=== PATIENT | male | born 1975 | race Caucasian/White ===

== ENCOUNTER 2017-06-11 12:21 | Emergency (ER) | payer SELFPAY ==
[~2017-06-11] VITALS: Ht 182.9 cm; Wt 83.0 kg
[2017-06-11 12:25] VITALS: BP 124/89; PULSE 105; RESP 16; TEMP 98; O2SAT 100
[2017-06-11 13:22] LABS: AUTOMATED NEUTROPHIL # 3.4 TH/MM3 (1.8-7.7); BASOPHIL % 0.6 % (0.0-2.0); EOSINOPHIL % 0.4 % (0.0-4.0); HEMATOCRIT 44.7 % (39.0-51.0); HEMO FLAGS DIFF FINAL; LYMPH % 27.8 % (9.0-44.0); LYMPHOCYTE # 1.6 TH/MM3 (1.0-4.8); MEAN CELL VOLUME 88.4 FL (80.0-100.0); MEAN CORPUSCULAR HEMOGLOBIN 30.9 PG (27.0-34.0); MONO % 12.6 % (0.0-8.0); NEUT % 58.6 % (16.0-70.0); PLATELET COUNT 126 TH/MM3 (150-450); RED BLOOD COUNT 5.06 MIL/MM3 (4.50-5.90); WHITE BLOOD COUNT 5.9 TH/MM3 (4.0-11.0)
[2017-06-11 13:35] LABS: BICARBONATE 25.3 MEQ/L (21.0-32.0); POTASSIUM 4.2 MEQ/L (3.5-5.1)
--- NOTE | 2017-06-11 14:07 | PD ---
HPI Chief Complaint: Skin Problem Time Seen by Provider: 14:01 Travel History International Travel<30 days: No Contact w/Intl Traveler<30days: No Traveled to known affect area: No History of Present Illness HPI 42-year-old male came to the emergency room with history of fever and rash for past 2-3 days. Patient says the fever is high up to 103 and he is been taking Tylenol and Motrin. He is mainly here for the rash since its generalized and he is not sure what it is. Patient was slightly tachycardic. He does not appear to be in any distress. He is not sure if he had chickenpox when he was a child. No history of cough or breathing difficulty. No known sick contacts. Patient was afebrile in triage. The rash is slightly itchy but otherwise he says it does not bother him too much. Patient is otherwise a healthy person. [facility] Past Medical History Narrative Medical List of his past medical, surgical, social and family history is reviewed from the nursing note. Social History Tobacco Use: Yes (chews tobacco) Allergies-Medications (Allergen,Severity, Reaction): Coded Allergies: No Known Allergies (Unverified , 06/11/17) Comments No known drug allergies. Reported Meds & Prescriptions Reported Meds & Active Scripts Active No Active Prescriptions or Reported Medications Narrative Medication List of his home medications reviewed from the nursing note. Review of Systems Except as stated in HPI: all other systems reviewed are Neg General / Constitutional: Positive: Fever Skin: Positive Rash Physical Exam Narrative GENERAL: Awake, alert, no obvious distress SKIN: Focused skin assessment warm/dry. Generalized brought of papular vesicular rash had various stages. "Dewdrop on chiki petal" appearance of some of the vesicles and some have scabs. HEAD: Atraumatic. Normocephalic. EYES: Pupils equal and round. No scleral icterus. No injection or drainage. ENT: No nasal bleeding or discharge. Mucous membranes pink and moist. Intraoral vesicles especially on the labial surface NECK: Trachea midline. No JVD. CARDIOVASCULAR: Regular rate and rhythm. No murmur appreciated. RESPIRATORY: No accessory muscle use. Clear to auscultation. Breath sounds equal bilaterally. GASTROINTESTINAL: Abdomen soft, non-tender, nondistended. Hepatic and splenic margins not palpable. MUSCULOSKELETAL: No obvious deformities. No clubbing. No cyanosis. No edema. NEUROLOGICAL: Awake and alert. No obvious cranial nerve deficits. Motor grossly within normal limits. Normal speech. PSYCHIATRIC: Appropriate mood and affect; insight and judgment normal. Data Data Last Documented VS Orders Orders Complete Blood Count With Diff (06/11/17 12:29) Basic Metabolic Panel (Bmp) (06/11/17 12:29) Rapid Plasmin Reagin Screen (06/11/17 12:29) Ed Discharge Order (06/11/17 14:36) Labs Laboratory Tests Test 06/11/17 12:51 White Blood Count 5.9 TH/MM3 Red Blood Count 5.06 MIL/MM3 Hemoglobin 15.6 GM/DL Hematocrit 44.7 % Mean Corpuscular Volume 88.4 FL Mean Corpuscular Hemoglobin 30.9 PG Mean Corpuscular Hemoglobin Concent 35.0 % Red Cell Distribution Width 13.0 % Platelet Count 126 TH/MM3 Mean Platelet Volume 9.7 FL Neutrophils (%) (Auto) 58.6 % Lymphocytes (%) (Auto) 27.8 % Monocytes (%) (Auto) 12.6 % Eosinophils (%) (Auto) 0.4 % Basophils (%) (Auto) 0.6 % Neutrophils # (Auto) 3.4 TH/MM3 Lymphocytes # (Auto) 1.6 TH/MM3 Monocytes # (Auto) 0.7 TH/MM3 Eosinophils # (Auto) 0.0 TH/MM3 Basophils # (Auto) 0.0 TH/MM3 CBC Comment DIFF FINAL Differential Comment Blood Urea Nitrogen 20 MG/DL Creatinine 1.41 MG/DL Random Glucose 100 MG/DL Calcium Level 8.8 MG/DL Sodium Level 137 MEQ/L Potassium Level 4.2 MEQ/L Chloride Level 101 MEQ/L Carbon Dioxide Level 25.3 MEQ/L Anion Gap 11 MEQ/L Estimat Glomerular Filtration Rate 55 ML/MIN Rapid Plasma Reagin NON-REACTIVE MDM Medical Decision Making Medical Screen Exam Complete: Yes Emergency Medical Condition: Yes Medical Record Reviewed: Yes Differential Diagnosis Chickenpox Narrative Course 2:45 PM patient was educated regarding chickenpox. I told him that the treatment is mainly symptomatic. Educated him about patient being contagious and he understands. I'll discharge him home. Procedures EKG Prior to Arrival: No Diagnosis Primary Impression: Chickenpox Qualified Codes: B01.9 - Varicella without complication Referrals: Primary Care Physician Additional Instructions: Take Tylenol/Motrin/Advil/ibuprofen for fever. If the rashes to which she could take [id number] Benadryl. Drink lots of fluids to keep himself hydrated. He will be very contagious during the time you have to rash. Follow- up with your primary care. Med/Other Pt SpecificInfo: No Change to Meds Scripts No Active Prescriptions or Reported Meds Disposition: 01 DISCHARGE HOME Condition: Stable Kimberly Ken MD Jun 11, 2017 14:07
== END 2017-06-11 15:56 | disposition home or self-care (01) ==
LOC: NEPC 12:21
DX: B01.9 Varicella without complication (principal); F17.220 Nicotine dependence, chewing tobacco, uncomplicated
CPT/HCPCS: 80048; 85025; 86592; 99283